=== PATIENT | male | born 1990 | race Caucasian/White ===

== ENCOUNTER 2025-03-13 20:42 | Emergency (ER) | payer SELFPAY ==
[2025-03-13 20:44] VITALS: BP 164/101
[2025-03-13 21:03] LABS: Hematocrit 40.1 % (39.0-52.0); Hemoglobin 14.2 g/dL (13.0-18.0); Mean Corp Hgb Conc. 35.4 g/dL (33.0-37.0); Mean Corpuscular Volume 88.9 fL (80.0-94.0); Nucleated Red Blood Cells % 0 % (-); Platelet Count 344 10^3/uL (130-400); Red Cell Dist. Width 12.3 % (11.5-14.5)
[2025-03-13 21:23] LABS: ALT (SGPT) 31 U/L (0-50); AST (SGOT) 33 U/L (17-59); Albumin 5.1 g/dl (3.5-5.0); Alkaline Phosphatase 63 U/L (38-126); Blood Urea Nitrogen 20 mg/dl (9-20); Calcium 9.7 mg/dl (8.4-10.2); Carbon Dioxide 24 mmol/L (22-30); Chloride 104 mmol/L (98-107); Glucose 159 mg/dl (70-99); Magnesium 1.7 mg/dl (1.6-2.3); Potassium 4.4 mmol/L (3.5-5.1); Sodium 137 mmol/L (135-145); Total Protein 7.7 g/dl (6.3-8.2); eGFR > 60.00
[2025-03-13 21:26] LABS: Troponin I < 0.012 ng/ml
== END 2025-03-14 00:17 | disposition left against medical advice (07) ==
LOC: EMR 20:42
PROVIDERS: EMERGENCY PHYSICIAN Student in an Organized Health Care Education/Training Program
DX: R42 Dizziness and giddiness (principal); Z53.21 Procedure and treatment not carried out due to patient leaving prior to being seen by health care provider
CPT/HCPCS: 80053; 83735; 84443; 84484; 85025; 93005

== ENCOUNTER 2025-08-26 16:08 | Emergency (ER) | payer OTHER, SELFPAY ==
[2025-08-26 16:28] VITALS: BP 164/87
[2025-08-26 16:59] LABS: Hematocrit 36.3 % (39.0-52.0); Hemoglobin 12.9 g/dL (13.0-18.0); Mean Corp Hgb Conc. 35.5 g/dL (33.0-37.0); Mean Corpuscular Volume 90.1 fL (80.0-94.0); Nucleated Red Blood Cells % 0 % (-); Platelet Count 314 10^3/uL (130-400); Red Cell Dist. Width 13.1 % (11.5-14.5)
[2025-08-26 17:17] LABS: ALT (SGPT) 29 U/L (0-50); AST (SGOT) 43 U/L (17-59); Albumin 4.6 g/dl (3.5-5.0); Alkaline Phosphatase 71 U/L (38-126); Blood Urea Nitrogen 14 mg/dl (9-20); Calcium 9.8 mg/dl (8.4-10.2); Carbon Dioxide 25 mmol/L (22-30); Chloride 103 mmol/L (98-107); Glucose 137 mg/dl (70-99); Potassium 4.4 mmol/L (3.5-5.1); Sodium 134 mmol/L (135-145); Total Protein 7.4 g/dl (6.3-8.2); eGFR > 60.00
[2025-08-26 17:21] LABS: Troponin I < 0.012 ng/ml
[2025-08-26 19:20] VITALS: BMI 24.7
[2025-08-26 19:24] VITALS: BP 156/91
[2025-08-26 20:00] VITALS: BP 153/96
--- NOTE | 2025-08-26 20:03 | ED.GENMED ---
History of Present Illness
General
Chief Complaint: Heart Rate Problem
Time Seen by Provider: 08/26/25 19:35
History of Present Illness
History of Present Illness:
Patient is a 35-year-old presenting to the emerged from palpitations. Patient states that he drank 4 days heavily. Last drink last night. This morning woke up with palpitations. [place] lightheaded initially though that has since resolved. He
denies any chest pain or shortness of breath. No nausea or vomiting. No diarrhea. He denies any fevers chills or recent illnesses. No history of blood clots hemoptysis leg swelling. He states that since he has been in the emergency department
and with time his symptoms have improved. At this time patient has no complaints. He does not feel that he is going through withdrawal. I did offer B cares though patient declined.
Past History
Past History
ED Past Medical History: None
ED Past Surgical History: None
Social History
Tobacco: Smoker
Alcohol: None
Drug: None
Personal: Single
Living: with family
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
Phy Exam
Physical Exam
Physical Exam:
GENERAL: in no acute distress
HEENT: normocephalic, extraocular movements intact, moist oral mucosa
NECK: normal inspection
RESPIRATORY: no respiratory distress, clear to auscultation bilaterally
CARDIOVASCULAR: regular rate and rhythm, 2+ radial pulses bilaterally
ABDOMEN/: soft, non-distended, non-tender to palpation, no rebound or guarding
EXTREMITIES: non-tender, no edema/swelling
NEUROLOGIC: awake and alert, moves all extremities
SKIN: warm
Course
Orders/Labs/Results
Orders:
Orders
08/26/25 16:33
Electrocardiogram (*1) Urgent
Reason for Study: Palpitations
EKG- Treatment ONCE
08/26/25 16:45
Alcohol Urgent
CMP [Comprehensive Metabolic Panel] Urgent
Complete Blood Count/With Diff Urgent
Magnesium Urgent
Comment: ADD ON
TSH Reflex To Free T4 Urgent
Comment: ADD ON
Troponin I Urgent
08/26/25 19:35
Add On- LAB Urgent
Tests Added?: magnesium, tsh with reflex
Abnormal Lab Results
08/26/25
16:45
RBC 4.03 L 10^6/uL
(4.70-6.10)
Hgb 12.9 L g/dL
(13.0-18.0)
Hct 36.3 L %
(39.0-52.0)
MCH 32.0 H pg
(27.0-31.0)
Absolute Neuts (auto) 7.6 H 10^3/uL
(1.4-6.5)
Absolute Lymphs (auto) 1.0 L 10^3/uL
(1.2-3.4)
Neutrophils % 82.8 H %
(42.2-75.2)
Lymphocytes % 11.1 L %
(20.5-51.1)
Sodium 134 L mmol/L
(135-145)
Glucose 137 H mg/dl
(70-99)
08/26/25 16:45
08/26/25 16:45
Vital Signs
Initial and Last Documented VS:
Initial Vital Signs
Temp Pulse Resp BP Pulse Ox
98.2 F 81 18 164/87 99
08/26/25 16:28 08/26/25 16:28 08/26/25 16:28 08/26/25 16:28 08/26/25 16:28
Last Documented Vital Signs
Temp Pulse Resp BP Pulse Ox
98.6 F 85 16 156/91 98
08/26/25 19:24 08/26/25 19:30 08/26/25 19:30 08/26/25 19:24 08/26/25 20:04
MDM/Problems Addressed
Differential Diagnosis Includes:
Patient is a 35-year-old man presenting to the emergency department palpitations that have since resolved. On arrival heart rate in the 80s. During evaluation his heart rate stayed in the 80s to 90s. Exam is otherwise reassuring. Differential is
broad but consists of arrhythmia versus PVCs versus will metabolic derangement versus secondary to alcohol use. Patient's CIWA is 1. Blood work obtained prior to evaluation is unremarkable. Will obtain magnesium and thyroid. EKG per my
interpretation normal sinus rhythm.
*Pulse Oximetry
SaO2: 98
Oxygen Mode of Delivery: Room air
Patient hypoxic: no
*Critical Care Note
Total Time (30-74mins, 75-104mins- exclusive of procedures): Not Applicable
Update Note
Update Note:
Blood work reassuring. Patient remained asymptomatic. Will discharge patient
ED Attending Note
-
Portions of this chart may have been created with voice recognition software.� Occasional wrong word or��sound alike� substitutions may have occurred due to the inherent limitations of voice recognition software.
Discharge Plan
Departure
Patient with high blood pressure during this ER visit?: Yes
Discharge Problem:
Palpitations
Instructions: Palpitations (DC)
Prescriptions:
No Action
No Current Medications
0
Referrals:
NONE,* [Family Provider, Internal Medicine]
Activity Restrictions/Additional Instructions:
Thank You for choosing [facility].
It was a pleasure meeting you and taking part in your care.
You were seen in the Emergency Department today for palpitations. While you were here we performed blood work, which was reassuring.
We would like for you to follow up with your primary care physician for further evaluation. If you experience fever, worsening of your symptoms, or develop any other new or concerning symptoms, please return to the Emergency Department immediately.
Please see the attached sheet for additional information.
Interventions
Interventions:
*General Assessment Last Done: 08/26/25 19:20
*Neglect/Abuse Screening Last Done: 08/26/25 16:28
*ED COVID-19 Vaccine History Last Done: 08/26/25 19:20
*ED Influenza Vaccine History Last Done: 08/26/25 19:20
[facility] Fall Risk Assessment Tool Last Done: 08/26/25 19:25
*Risk Screen - Suicide (C-SSRS) Last Done: 08/26/25 16:28
ED- Cardiac Assessment Last Done: 08/26/25 19:26
ED- Pulmonary Assessment Last Done: 08/26/25 19:26
Discharge Date and Time
Print Language: [id number]
[2025-08-26 20:11] LABS: Magnesium 1.6 mg/dl (1.6-2.3)
[2025-08-26 21:05] VITALS: BP 148/96
== END 2025-08-26 21:12 | disposition home or self-care (01) ==
LOC: EMR 16:08
PROVIDERS: Emergency Medicine; EMERGENCY PHYSICIAN Student in an Organized Health Care Education/Training Program
DX: R00.2 Palpitations (principal); F17.200 Nicotine dependence, unspecified, uncomplicated
CPT/HCPCS: 99283; 80053; 82077; 83735; 84443; 84484; 85025; 93005